=== PATIENT | female | born 1935 | race Caucasian/White ===

== ENCOUNTER 2017-10-29 14:51 | Inpatient (IN) | payer OTHER ==
[~2017-10-29] VITALS: Ht 167.6 cm; Wt 136.1 kg
[~2017-10-29 14:51] MED LIST: ACET-2869 PO; ALBU0.0912 INH; CHOL400T7 PO; CRAN425C4 PO; DIPH25TA53 PO; DOCU-7 PO; FAMO20TA47 PO; GABA300C PO; LACT1CAP83 PO; LEVO0.173 PO; LOSA25TA22 PO; METO25TA PO; RIVA15TA1 PO; SULF-58 PO; TRAZ-286 PO; ZYL300 PO
[2017-10-29 15:11] VITALS: BP 138/95
--- NOTE | 2017-10-29 15:19 | NUR ---
PATIENT STILL ON THR GURNEY . NO BED AVAIL. AT THIS TIME
[2017-10-29] MEDS ORDERED: DIGO0.122 PO (15:28)
--- NOTE | 2017-10-29 17:00 | NUR ---
PATIENT TO BED#11 BY PARAMEDICS
--- NOTE | 2017-10-29 17:26 | NUR ---
81 YO M BIBA W/ C/O ALTERED STATE, CONFUSION. PT FROM [facility] PER REPORT. PER REPORT FROM [facility], PT IS USUALLY A&O X4. CONFUSION BEGAN "LATE AFTERNOON". PT A&O X 2 AT THIS TIME. PT REORIENTED TO LOCATION ([facility]), BUT FORGOT WITHIN 3 MINS. PT UNAWARE OF SURROUNDINGS. PT SPEECH IS CLEAR. NO S/S OF INJURY. PT IS BILATERALLY STRONG. REFLEXES INTACT. NO S/S OF STROKE. UNABLE TO ATTAIN INFORMATION FROM PT AT THIS TIME. REPIRATIONS EVEN AND UNLABORED AT THIS TIME. LUNG SOUNDS CLEAR BILATERALLY AT THIS TIME. ER SECHRIST NOTIFIED OF PT STATUS. PT NEEDS MET AT THIS TIME. WILL CONTINUE TO MONITOR AND WILL CONTINUE TO REASSESS PT.
[2017-10-29] MEDS ORDERED: LORazepam 2 MG/ML VIAL IVP ONE (17:40)
[2017-10-29 18:12] LABS: BASOPHILS % (AUTO) 0.5 % (0.0-2.0); EOSINOPHILS # (AUTO) 0.1 K/uL (0-0.4); EOSINOPHILS % (AUTO) 1.4 % (0.0-4.0); HEMATOCRIT 46.5 % (36-48); HEMOGLOBIN 15.2 g/dL (12.0-16.0); LYMPHOCYTES # (AUTO) 1.3 K/uL (2.5-16.5); MEAN CORPUSCULAR HEMOGLOBIN 33 pg (27-31); MEAN CORPUSCULAR HGB CONC 33 g/dL (33-37); MEAN CORPUSCULAR VOLUME 100.9 fL (80-94); MONOCYTES # (AUTO) 0.7 K/uL (0.8-1.0); MONOCYTES % (AUTO) 7.9 % (1.7-9.3); NEUTROPHILS # (AUTO) 6.4 K/uL (1.8-7.7); NEUTROPHILS % (AUTO) 75.2 % (42.2-75.2); PLATELET COUNT (AUTO) 317 K/uL (140-450); RED BLOOD CELL COUNT(AUTO) 4.61 MIL/uL (4.20-5.40); RED CELL DISTRIBUTION WIDTH 15.6 % (11.6-13.7); WHITE BLOOD COUNT (AUTO) 8.6 K/uL (4.8-10.8)
[2017-10-29 18:44] LABS: ANION GAP 13.1 (8-16); CARBON DIOXIDE 34.5 mmol/L (21-32); CHLORIDE 102 mmol/L (98-107); CREATININE 0.9 mg/dL (0.6-1.3); GLUCOSE 157 mg/dL (74-106); POTASSIUM 3.6 mmol/L (3.5-5.1); SODIUM SERUM 146 mmol/L (136-145); UREA NITROGEN, BLOOD 6 mg/dL (7-18)
[2017-10-29 19:00] LABS: ASPARTATE AMINOTRANSFERASE 26 U/L (15-37); LIPASE 40 U/L (73-393); MAGNESIUM 2.1 mg/dL (1.8-2.4); PHOSPHORUS 2.8 mg/dL (2.5-4.9); THYROID STIMULATING HORMONE 7.02 uIU/mL (0.34-3.74); TOTAL BILIRUBIN 0.7 mg/dL (0.0-1.0)
--- NOTE | 2017-10-29 19:23 | NUR ---
Pt report given to GENI GONSALEZ. Transfer of care at this time.
--- NOTE | 2017-10-29 19:30 | NUR ---
RECEIVED REPORT FROM MORNING NURSE. PT IS RESTING IN BED. CONFUSED BUT ABLE TO FOLLOW SIMPLE COMMANDS. NO ACUTE DISTRES NOTED. WILL CONTINUE TO MONITOR.
[2017-10-29 20:26] LABS: APPEARANCE,URINE CLEAR (CLEAR); BILIRUBIN,URINE NEGATIVE (NEGATIVE); BLOOD, URINE NEGATIVE (NEGATIVE); LEUKOCYTE ESTERASE ,URINE NEGATIVE (NEGATIVE); NITRITE, URINE NEGATIVE (NEGATIVE); PH,URINE 8.5 (5.0-9.0); UGLUCOSE NEGATIVE (NEGATIVE)
[2017-10-29 20:40] LABS: COLOR,URINE STRAW (YELLOW)
[2017-10-29 20:45] LABS: BARBITURATE, URINE NEG. ng/ml (NEG <=200); BENZODIAZEPINE, URINE NEG. ng/mL (NEG <=200); CANNABINOID, URINE NEG. ng/mL (NEG <=50); COCAINE, URINE NEG. ng/mL (NEG <=300); OPIATE, URINE NEG. ng/mL (NEG <=2000); PHENCYCLIDINE SCREEN,URINE NEG. ng/mL (NEG <=25)
[2017-10-29 21:50] VITALS: BP 154/79
--- NOTE | 2017-10-29 21:50 | NUR ---
Patient will be admitted to care of DR. NEW HOROWITZ. Admited to TELEMETRY. Will go to room 124A. Belongings list completed. WHILE TRANPORATING TO TELEMETRY, PT PULLED IV LINE. NO BLEEDING NOTED. PT CONTINUES TO PULLING THE GOWN AND TELEMTRY LEADS. PT NOT ABLE TO BE REDIRECTED DUE TO CURRENT COGNITIVE STATUS. NO ACUTE DISTRESS NOTED. BED SIDE Report to GENI SIMS.
--- NOTE | 2017-10-29 21:50 | NUR ---
RECEIVED PT FROM ER VIA MIRZA PT CONFUSED ALERT IN PERSON COMBATIVE PULL OUT THE TELE BOX MONITOR AND TRYING TO HIT NURSES NOT IV ACCESS AT THIS TIME AFIB ON ON TELEMETRY MORBID OBESITY DISCOLORATION ON BILATERAL LOWER EXTREMITIES AND 2 SMALL DRY WOUNDS ON RT LOWER EXTREMITY PT IS ORIENTED TO THE FLOOR CALL LIGHT WITHN REACH MRSA NARES SCREEN TAKEN AND SENT TO LAB
[2017-10-29] MEDS ORDERED: LORazepam 2 MG/ML VIAL IM/IVP PRN (23:25)
--- NOTE | 2017-10-29 23:30 | NUR ---
DR BENAVIDEZ GIVE ORDERS TO FOLLOW
[2017-10-29] MEDS: NACL 0.45% 1,000 ML IV SCH (23:44)
[2017-10-30] VITALS: BP 150/70
--- NOTE | 2017-10-30 02:00 | NUR ---
PT PULL OUT AGAIN THE IV FROM LEFT FA A NEW IV WILL BE INSERTED, PTYELLING REFUSED TO BE TURNED ON TELMETRY CONTROLLED AFIB
[2017-10-30 04:00] VITALS: BP 137/72
--- NOTE | 2017-10-30 04:00 | NUR ---
SPONGE BATH GIVEN LINEN CHANGED CONTROLLED AFIB IV ON RT HAND INFUSING WELL NOT DISTRESS NOTED
--- NOTE | 2017-10-30 06:57 | NUR ---
PT SLEEPING QUIET ON TELEMETRY CONTROLLED AFIB IV ON RT HAND INFUSING WELL DR HOROWITZ WILL SEE THE PT THIS AM
[2017-10-30] MEDS ORDERED: HYDROcodone/APAP 5/325 MG 1 TAB TAB PO PRN (07:20)
[2017-10-30] MEDS ORDERED: ALBUTEROL SULFATE/IPRATROPIU 3 ML SOL IH PRN (07:20)
[2017-10-30] MEDS ORDERED: INSULIN LISPRO SLIDING SCALE 100 UNITS/ML VIAL SUBQ PRN (07:30)
[2017-10-30] MEDS: BLOOD GLUCOSE MONITORING 1 DEV DEV FS SCH ×4 (07:30→21:37)
[2017-10-30] MEDS ORDERED: DEXTROSE 50% 50 ML SYR IVP PRN (07:30)
[2017-10-30] MEDS ORDERED: LEVOTHYROXINE 0.1 MG, LEVOTHYROXINE 0.075 MG PO SCH ×2 (07:41)
--- NOTE | 2017-10-30 07:55 | NUR ---
PATIENT AWAKE. SITTING UP IN BED. DENIES SOB. HR 90. O2 SAT 95% ON ROOM AIR. BREATH SOUNDS CLEAR/DIMINISHED. NO TX INDICATED AT THIS TIME. NO RESPIRATORY DISTRESS NOTED. WILL CONTINUE TO MONITOR.
[2017-10-30 08:00] VITALS: BP 148/77
--- NOTE | 2017-10-30 08:29 | NUR ---
PT WAS AGITATED AND TRYING TO PULL IV OUT. YELLING "GET OUT OF HERE, IM GOING TO HURT YOU." ADMINISTERED ATIVAN 0.5MG IV. PT YELLED AGAIN AND PULL OUT IV FROM R HAND 24G. GRABBED MY HANDS TIGHT AND ATTEMPTED TO BITE. PT ALSO REFUSED EKG. LYING IN BED NOW. WILL CONTINUE TO MONITOR.
[2017-10-30] MEDS ORDERED: NON-FORMULARY ITEM (Levothyroxine Sodium* (Synthroid*) 0.175 MG) PO SCH (09:00)
[2017-10-30] MEDS: DOCUSATE SODIUM 100 MG GELCAP PO SCH ×3 (09:00→21:16)
--- NOTE | 2017-10-30 09:33 | NUR ---
PT HAD INCONTINENT URINE. WITH FINE DINING SERVER TRIED TO CLEAN PT AND CHANGED SHEETS. PT WAS COMBATIVE AND TRIED TO KICK RN AND FINE DINING SERVER. CURSING AT STAFF AND YELLING "GET OUT OF HERE!" REFUSED TO BE CLEAN. PT WENT BACK TO BED. SLEEPING NOW. WILL CONTINUE TO MONITOR.
--- NOTE | 2017-10-30 10:29 | NUR ---
PATIENT HAS BEEN SCREENED AND CATEGORIZED HIGH NUTRITION RISK. PATIENT WILL BE SEEN WITHIN 1-2 DAYS OF ADMISSION. 10/30/17 - 10/31/[address]
[2017-10-30] MEDS: METOPROLOL 25 MG TAB PO SCH (10:51)
[2017-10-30] MEDS: LOSARTAN 25 MG TAB PO SCH (10:51)
[2017-10-30] MEDS: ALLOPURINOL 300 MG TAB PO SCH (10:52)
[2017-10-30] MEDS: CITALOPRAM 20 MG TAB PO SCH (10:52)
[2017-10-30] MEDS: DIGOXIN 0.125 MG TAB PO SCH (10:52)
[2017-10-30] MEDS: FAMOTIDINE 20 MG TAB PO SCH ×2 (10:53→21:16)
[2017-10-30] MEDS: SULFAMETH/TRIMETH 400/80MG 1 TAB PO SCH ×3 (10:53→21:16)
--- NOTE | 2017-10-30 11:23 | NUR ---
PT CRYING AND YELLING. PULLED OFF TELE MONITOR. REFUSED TO HAVE TELE MONITOR ON. INFORMED PT NEEDS NEW IV START. PT STATED "DON'T YOU DARE PUT THAT IN ME!" AND CURSED AT SHIP PROPELLER FINISHER AND RN. LYING IN BED CRYING. NO INJURY. WILL CONTINUE TO MONITOR.
[2017-10-30] MEDS: NACL 0.45% 1,000 ML IV SCH (11:55)
[2017-10-30 12:00] VITALS: BP 144/67
[2017-10-30] MEDS: GABAPENTIN 300 MG CAP PO SCH ×2 (12:48→21:15)
--- NOTE | 2017-10-30 12:52 | NUR ---
PT'S BS WAS 182. PT REFUSED INSULIN. STATED SHE ONLY TAKES INSULIN IF HER BLD SUGAR IS OVER 200. ADMINISTERED GABAPENTIN PO. PT STATED SHE TAKES THAT. TOLERATED WELL. WILL CONTINUE TO MONITOR.
--- NOTE | 2017-10-30 14:01 | NUR ---
CM NOTE ADMISSION REVIEW FOR CRITERIA DONE
--- NOTE | 2017-10-30 14:37 | NUR ---
10/30/17 RD INITIAL ASSESSMENT COMPLETED PLEASE REFER TO NUTRITION ASSESSMENT UNDER CARE ACTIVITY FOR ESTIMATED NUTRITIONAL NEEDS. 1. CONTINUE MECHANICAL SOFT DIET TOLERATED 2. RECOMMEND CCHO 60G DIET TOLERATED 3. RD TO FOLLOW-UP 3-5 DAYS, MODERATE RISK ABA GARCIA, RD
--- NOTE | 2017-10-30 15:25 | NUR ---
PT HAD INCONTINENT URINE AND BM. CHANGED LINENS AND CLEANED PT. PT PULLED OFF TELE MONITOR. APPLIED TELE MONITOR BACK ON. WILL CONTINUE TO MONITOR.
[2017-10-30 16:00] VITALS: BP_SYST 108; BP_SYST 131; BP_DIAS 50; BP_DIAS 61
--- NOTE | 2017-10-30 17:20 | NUR ---
PT'S GRANDSON AT BEDSIDE. GAVE UPDATE ON PT. PT WAS CURSING AT STUDENT. TOLD PT SHE NEEDED IVF. PT REFUSED. EXPLAINED RISKS AND BENEFITS. PT STILL REFUSED.
--- NOTE | 2017-10-30 17:37 | NUR ---
CALLED DR. HOROWITZ AND REPORTED THAT PT REFUSED IV LINE AND THAT PT REFUSED INSULIN BECAUSE SHE STATED SHE ONLY GETS IF BS IS OVER 200. ORDERED FOR SL. REPORTED THAT DR. MELENDEZ CAME AND READ BACK RECOMMENDATION.
--- NOTE | 2017-10-30 19:32 | NUR ---
ENDORSED PT TO GLASSIE NURSE LEVI AT BEDSIDE FOR CONTINUITY OF CARE. PT IN STABLE CONDITION
--- NOTE | 2017-10-30 19:33 | NUR ---
RECEIVED PATIENT REPORT AT BEDSIDE FROM DAY SHIFT NURSE BJ. AT RECEIVING REPORT PATIENT AAO X1. PATIENT MORBID OBESITY. ON TELEMETRY A-FIB. NO IV ACCESS AT THIS TIME WE WILL INSERT A NEW ONE. BLE PITTING EDEMA +2 AND DISCOLORATION. RIGHT LEG HEEL SMALL SCAB WOUND. INITIAL ASSESSMENT DONE. BED LOWERED CALL LIGHT WITHIN REACH. WILL CONTINUE TO MONITOR.
[2017-10-30 20:00] VITALS: BP 132/59
[2017-10-30] MEDS: RIVAROXABAN 10 MG TAB PO SCH ×2 (21:00→21:45)
[2017-10-30] MEDS: DONEPEZIL 10 MG TAB PO SCH (21:15)
[2017-10-30] MEDS: traZODone 50 MG TAB PO SCH (21:16)
--- NOTE | 2017-10-30 21:31 | NUR ---
PATIENT BECAME VERY COMBATIVE REFUSED HEP LOCK - START OF NEW IV. PATIENT ONLY TOOK SOME MEDICATION. PT IS CONFUSED AND COMBATIVE. SHE HAS BECOME VIOLENT IN WANTING TO HIT STAFF. SHE WAS HITTING, SCRATCHING AND THROWING APPLE SAUCE.
--- NOTE | 2017-10-30 21:32 | NUR ---
WHILE TRYING TO START IV. PATIENT REFUSE. VERY CONFUSED AND COMBATIVE. DR NY WILL BE CALLED TO NOTIFIED PT CONDITION.
--- NOTE | 2017-10-30 21:45 | NUR ---
DR. HOROWITZ WAS NOTIFIED THAT PATIENT REFUSED HEP LOCK. IV SITE AND ALSO SPIT OUT SOME OF THE MEDICATION.
--- NOTE | 2017-10-30 23:00 | NUR ---
DID HOURLY ROUNDS PATIENT IS TALKING TO HERSELF AND AT TIMES SHOUTING. WILL CONTINUE TO MONITOR.
[2017-10-31] VITALS: BP_SYST 123; BP_SYST 135; BP_DIAS 63; BP_DIAS 66
--- NOTE | 2017-10-31 00:01 | NUR ---
ASSESSED PATIENT AND VITALS PT IS NOW CALM AND SLEEPING. VITALS WNL. WILL CONTINUE TO MONITOR.
[2017-10-31] MEDS: NACL 0.45% 1,000 ML IV SCH ×2 (00:25→12:55)
--- NOTE | 2017-10-31 03:00 | NUR ---
ASSESSED PATIENT. PT IS ASLEEP. WILL CONTINUE TO MONITOR.
[2017-10-31 04:00] VITALS: BP 143/57
[2017-10-31] MEDS: GABAPENTIN 300 MG CAP PO SCH ×3 (05:00→21:48)
--- NOTE | 2017-10-31 05:00 | NUR ---
PT REFUSED TO TAKE MEDICATION. DR HOROWITZ AWARE. PT IS COMBATIVE AND REFUSED WHEN WE INSISTED ON THE IMPORTANCE OF TAKING MEDICATION.
--- NOTE | 2017-10-31 06:28 | NUR ---
PT COMBATIVE REFUSED ACCU CHECK ,DANIEL ALFORD DIRECTOR MAKING ROUND IN THE UNIT IS AWARE ABOUT PT BEHAVIOR AT THIS TIME DR HOROWITZ WILL BE NOTIFY
[2017-10-31] MEDS ORDERED: LEVOTHYROXINE 0.1 MG, LEVOTHYROXINE 0.075 MG PO SCH ×2 (06:30)
--- NOTE | 2017-10-31 07:00 | NUR ---
DR HOROWITZ WAS NOTIFY THAT PT REFUSED TO TAKE MEDICATIION AD ORDERS TO FOLLOW
--- NOTE | 2017-10-31 07:07 | NUR ---
DR HOROWITZ AT BEDSIDE. TOOK BLOOD SUGAR 162. NO NEED TO COVER.
[2017-10-31] MEDS: BLOOD GLUCOSE MONITORING 1 DEV DEV FS SCH ×4 (07:08→21:53)
--- NOTE | 2017-10-31 07:16 | NUR ---
ASSUMED CONTINUITY OF CARE. NO SIGNS AND SYMPTOMS OF ACUTE DISTRESS NOTED. INITIAL ASSESSMENT DONE. NON-COMPLIANT. RE-ORIENTED TO EVENTS AND SURROUNDINGS. FALL PRECAUTION APPLIED. CALL LIGHT WITHIN REACH.
--- NOTE | 2017-10-31 07:32 | NUR ---
GAVE REPORT TO DAY SHIFT TIMOTHY ASSOCIATE PROFESSOR OF MUSIC NURSE AT BEDSIDE FOR CONTINUITY OF CARE.
--- NOTE | 2017-10-31 07:35 | NUR ---
Patient's Plan of Care was discussed and reviewed with FUENTES: HARSHA
[2017-10-31 08:00] VITALS: BP 141/95
[2017-10-31] MEDS: LOSARTAN 25 MG TAB PO SCH ×2 (09:00→09:10)
[2017-10-31] MEDS: METOPROLOL 25 MG TAB PO SCH ×2 (09:00→09:11)
[2017-10-31] MEDS: DIGOXIN 0.125 MG TAB PO SCH ×2 (09:00→09:09)
[2017-10-31] MEDS: CITALOPRAM 20 MG TAB PO SCH ×2 (09:00→09:10)
[2017-10-31] MEDS: FAMOTIDINE 20 MG TAB PO SCH ×3 (09:00→21:48)
[2017-10-31] MEDS: DOCUSATE SODIUM 100 MG GELCAP PO SCH ×3 (09:00→21:48)
[2017-10-31] MEDS: ALLOPURINOL 300 MG TAB PO SCH ×2 (09:00→09:09)
--- NOTE | 2017-10-31 09:05 | NUR ---
NON-COMPLIANT. REFUSED SCHEDULED MEDICINE. MADE AWARE. INFORMED CHARGE NURSE MITCHEL GUTIERREZ -GENI.
[2017-10-31] MEDS: SULFAMETH/TRIMETH 400/80MG 1 TAB PO SCH ×3 (09:06→21:48)
--- NOTE | 2017-10-31 10:00 | NUR ---
I attempted to contact Patient's Grandson Alessandro Hagan at to discuss patient's Status and discharge today back to [facility]). No response Form Mr. Hagan therefore; these policy writer sales left him a voicemail MSG with contact information and a request for a call back.
--- NOTE | 2017-10-31 10:38 | NUR ---
CM NOTE PER [facility] ROSANNE CARDENAS, FOR [facility] AUTH# [id number]. PER PEDRO OF [facility], PATIENT CAN GO BACK TO [address] Chris HOROWITZ, NUMBER TO CALL FOR REPORT PH# [phone]. CLINICALS FAXED TO [facility] [phone] ATTN: PEDRO. PER JENNIFER OF [facility] PH# [phone], PATIENT WILL BE PICKED UP AT 1500 TIME TODAY GOING TO [facility]. NURSE THIERRY HERRERA.
[2017-10-31 12:00] VITALS: BP 148/70
--- NOTE | 2017-10-31 12:00 | NUR ---
CALLED [facility] AND SPOKE TO PEDRO SKELTON AND GAVE REPORT REGARDING PT. TRANSFER. INFORMED CHARGE NURSE MITCHEL EPPS.
[2017-10-31 16:00] VITALS: BP 144/83
--- NOTE | 2017-10-31 17:20 | NUR ---
CALLED [facility] AND SPOKE TO JIM SKELTON AND INFORMED THAT PT. TRANSFER WAS RE-ARRANGED AT 2030 DUE TO BARIATRIC GURNEY AVAILABILITY. INFORMED CHARGE NURSE MITCHEL EPPS.
--- NOTE | 2017-10-31 18:35 | NUR ---
CALLED PT. DAUGHTER -RAMIRO AT AND INFORMED THAT PT. TRANSFER TO [facility] WAS RE-ARRANGED TO 2029 DUE TO BARIATRIC GURNEY AVAILABILITY. INFORMED CHARGE NURSE MITCHEL EPPS.
--- NOTE | 2017-10-31 19:11 | NUR ---
BEDSIDE REPORT GIVEN TO CHAD EPPS. IN STABLE CONDITION. ALSO ENDORSED ABOUT PT. TRANSFER TO [facility] TIME IS 2030 DUE TO BARIATRIC GURNEY. IN STABLE CONDITION.
--- NOTE | 2017-10-31 19:12 | NUR ---
RECEIVED REPORT FROM DAY SHIFT NURSE SEAN. PT RESTING IN BED. AOX1, NO IV ACCESS AND ON ROOM AIR. BLE PITTING EDEMA +2 WITH DISCOLORATION, ALSO ON RIGHT HEEL THERE IS A SMALL SCAB WOUND. PT IS NOT ABULATORY, MORBIDLY OBESE IN NEED OF 2 PERSON ASSIST. NO S/S OF RESPIRATORY DISTRESS OR DISCOMFORT AT THIS TIME. BED IN LOWEST POSITION, BREAKS ON. BED SIDE TABLE AND CALL LIGHT WITHIN REACH. DISCUSSED PLAN OF CARE AND PT VERBALIZED UNDERSTANDING. WHITE BOARD UPDATED. WILL CONTINUE TO MONITOR.
[2017-10-31 20:00] VITALS: BP 135/81
[2017-10-31] MEDS: traZODone 50 MG TAB PO SCH (21:48)
[2017-10-31] MEDS: DONEPEZIL 10 MG TAB PO SCH (21:48)
[2017-10-31] MEDS: RIVAROXABAN 10 MG TAB PO SCH (21:52)
--- NOTE | 2017-10-31 21:55 | NUR ---
SCHEDULED MEDICATIONS GIVEN. PT TOLERATED WELL. PT REFUSED INSULIN STATING, "I ONLY TAKE INSULIN WHEN MY BLOOD SUGAR IS OVER 200." EDUCATED PT ON INSULIN HOWEVER PT STILL REFUSED MEDICATION. PT WAITING TO BE TRANSFERRED. WILL CONTINUE TO MONITOR.
--- NOTE | 2017-10-31 23:05 | NUR ---
DISCHARGE PT TO [facility] AWAKE ALERT AND ORIENTED X3, NO RESPIRATORY DISTRES OR C/O PAIN . Addendum: 11/01/17 at 0439 by Ani Sher RN DISREGARD CHARTING AT 0696
--- NOTE | 2017-10-31 23:10 | NUR ---
PT LEFT VIA GURNEY BACK TO [facility]. PT IN STABLE CONDITION.
== END 2017-10-31 23:05 | disposition home or self-care (01) | DRG 71 ==
LOC: MED 14:51 → MTU 20:46
PROVIDERS: ADMIT Family Medicine; ATTEND Family Medicine
DX: G93.41 Metabolic encephalopathy (principal); E87.0 Hyperosmolality and hypernatremia; E11.40 Type 2 diabetes mellitus with diabetic neuropathy, unspecified; L03.115 Cellulitis of right lower limb; E44.1 Mild protein-calorie malnutrition; E66.01 Morbid (severe) obesity due to excess calories; I48.91 Unspecified atrial fibrillation; L03.116 Cellulitis of left lower limb; Z68.42 Body mass index [BMI] 45.0-49.9, adult; R41.82 Altered mental status, unspecified; I50.9 Heart failure, unspecified; I11.0 Hypertensive heart disease with heart failure; E03.9 Hypothyroidism, unspecified; G30.9 Alzheimer's disease, unspecified; F02.80 Dementia in other diseases classified elsewhere, unspecified severity, without behavioral disturbance, psychotic disturbance, mood disturbance, and anxiety; K21.9 Gastro-esophageal reflux disease without esophagitis; J44.9 Chronic obstructive pulmonary disease, unspecified; R53.81 Other malaise; F32.9 Major depressive disorder, single episode, unspecified; L29.9 Pruritus, unspecified; Z79.899 Other long term (current) drug therapy; Z90.710 Acquired absence of both cervix and uterus; Z88.0 Allergy status to penicillin; Z90.49 Acquired absence of other specified parts of digestive tract; Z98.51 Tubal ligation status; Z79.4 Long term (current) use of insulin
CPT/HCPCS: 36415; 70450; 71045; 80053; 80305; 81003; 82550; 82948; 83690; 83735; 84100; 84439; 84443; 84484; 85025; 87081; 93005; 96374; 99285; C1758; G0482; J1815; J2060; Q0092

== ENCOUNTER 2018-08-29 22:03 | Emergency (ER) | payer OTHER ==
[~2018-08-29] VITALS: Ht 165.1 cm; Wt 117.9 kg
[~2018-08-29 22:03] MED LIST changes: -ACET-2869 PO; +DIGO0.122 PO; +HYDR-5122 PO; -LOSA25TA22 PO; +LOSA25TA43 PO; -TRAZ-286 PO; +TRAZ-344 PO
[2018-08-29 22:05] VITALS: BP 133/82
--- NOTE | 2018-08-29 22:05 | NUR ---
ASSUMED CARE OF PT AT THIS TIME. C/O RLQ ABDOMINAL PAIN X 1 DAY. PATIENT STATES PAIN OF 9/10; VSS; PATIENT POSITIONED FOR COMFORT; HOB ELEVATED; BEDRAILS UP X2; BED DOWN. ER MD MADE AWARE OF PT STATUS. WILL CONTINUE TO MONITOR.
[2018-08-29] MEDS ORDERED: CEPH250C16 PO (22:21)
[2018-08-29] MEDS ORDERED: CALC500C17 PO (22:21)
[2018-08-29] MEDS ORDERED: LEVO0.2T5 PO (22:21)
[2018-08-29] MEDS ORDERED: FURO-570 PO (22:21)
[2018-08-29] MEDS ORDERED: GLIP5TAB4 PO (22:21)
[2018-08-29] MEDS ORDERED: POTA10TE30 PO (22:21)
[2018-08-29 22:36] LABS: BASOPHILS # (AUTO) 0.1 K/uL (0.00-0.22); BASOPHILS % (AUTO) 0.7 % (0.0-2.0); EOSINOPHILS # (AUTO) 0.3 K/uL (0-0.4); EOSINOPHILS % (AUTO) 3.3 % (0.0-4.0); HEMATOCRIT 41.5 % (36-48); HEMOGLOBIN 13.6 g/dL (12.0-16.0); LYMPHOCYTES # (AUTO) 1.3 K/uL (2.5-16.5); LYMPHOCYTES % (AUTO) 12.2 % (20.5-51.1); MEAN CORPUSCULAR HEMOGLOBIN 32 pg (27-31); MEAN CORPUSCULAR HGB CONC 33 g/dL (33-37); MEAN CORPUSCULAR VOLUME 98.7 fL (80-94); MONOCYTES # (AUTO) 0.6 K/uL (0.8-1.0); NEUTROPHILS # (AUTO) 8.1 K/uL (1.8-7.7); NEUTROPHILS % (AUTO) 77.8 % (42.2-75.2); PLATELET COUNT (AUTO) 319 K/uL (140-450); RED BLOOD CELL COUNT(AUTO) 4.21 MIL/uL (4.20-5.40); RED CELL DISTRIBUTION WIDTH 15.4 % (11.6-13.7); WHITE BLOOD COUNT (AUTO) 10.4 K/uL (4.8-10.8)
[2018-08-29] MEDS ORDERED: LORazepam 2 MG/ML VIAL IVP ONE (22:45)
[2018-08-29] MEDS ORDERED: LORazepam 2 MG/ML VIAL ONE (22:51)
[2018-08-29 22:53] LABS: ANION GAP 5.8 (8-16); ASPARTATE AMINOTRANSFERASE 37 U/L (15-37); CARBON DIOXIDE 34.2 mmol/L (21-32); CHLORIDE 100 mmol/L (98-107); GLUCOSE 180 mg/dL (74-106); LIPASE 89 U/L (73-393); SODIUM SERUM 136 mmol/L (136-145); TOTAL BILIRUBIN 0.4 mg/dL (0.0-1.0); UREA NITROGEN, BLOOD 12 mg/dL (7-18)
--- NOTE | 2018-08-29 23:00 | NUR ---
PT RETURNS FROM CT W/OUT INCIDENT.
[2018-08-29 23:16] LABS: APPEARANCE,URINE CLEAR (CLEAR); BILIRUBIN,URINE NEGATIVE (NEGATIVE); BLOOD, URINE NEGATIVE (NEGATIVE); COLOR,URINE YELLOW (YELLOW); LEUKOCYTE ESTERASE ,URINE TRACE (NEGATIVE); NITRITE, URINE NEGATIVE (NEGATIVE); PH,URINE 7.5 (5.0-9.0); UGLUCOSE NEGATIVE (NEGATIVE)
[2018-08-29 23:20] LABS: RBC,URINE 0-5 (RARE) /HPF (0-5); WBC,URINE 0-5 (RARE) /HPF (0-5)
[2018-08-30] MEDS ORDERED: MORPHINE SULFATE 4 MG/ML SYR IVP ONE (00:10)
--- NOTE | 2018-08-30 01:40 | NUR ---
PT RESTING COMFORTABLY AT THIS TIME. PT AWAITS TRANSPORT BACK TO SNF. NAD. VSS. WILL CONTINUE TO MONITOR.
[2018-08-30] MEDS ORDERED: LORazepam 2 MG/ML VIAL IVP ONE (03:10)
--- NOTE | 2018-08-30 03:20 | NUR ---
PT RESTING COMFORTABLY AT THIS TIME. PT CONTINUES TO AWAIT TRANSPORT BACK TO SNF. NAD. VSS. WILL CONTINUE TO MONITOR.
--- NOTE | 2018-08-30 05:55 | NUR ---
CALLED AND SPOKE W/ JULISA AT [facility] REGARDING PT'S RETURN/DISCHARGE. PT RESTING CONFORTABLY AT THIS TIME. NAD. VSS. PT CONTINUES TO AWAIT AMBULANCE TRANSPORT. WILL CONTINUE TO MONITOR.
[2018-08-30 06:50] VITALS: BP 141/80
--- NOTE | 2018-08-30 06:50 | NUR ---
Patient discharged with v/s stable. Written and verbal after care instructions given and explained. Patient verbalized understanding. Ambulance Transport with to care home. All questions addressed prior to discharge. Advised to follow up with PMD.
== END 2018-08-30 06:50 ==
LOC: MED 22:03
DX: R10.11 Right upper quadrant pain (principal); I11.0 Hypertensive heart disease with heart failure; I50.9 Heart failure, unspecified; E11.9 Type 2 diabetes mellitus without complications; K21.9 Gastro-esophageal reflux disease without esophagitis; J44.9 Chronic obstructive pulmonary disease, unspecified; Z90.710 Acquired absence of both cervix and uterus; Z90.49 Acquired absence of other specified parts of digestive tract; Z90.89 Acquired absence of other organs; Z98.890 Other specified postprocedural states; Z79.2 Long term (current) use of antibiotics; Z79.01 Long term (current) use of anticoagulants; Z79.84 Long term (current) use of oral hypoglycemic drugs; Z79.899 Other long term (current) drug therapy; Z88.0 Allergy status to penicillin; Z91.018 Allergy to other foods
CPT/HCPCS: 36415; 74176; 80053; 81001; 83690; 85025; 96374; 96375; 96376; 99284; J2060; J2270; 51702; 81002

== ENCOUNTER 2018-10-06 21:07 | Inpatient (IN) | payer OTHER ==
[~2018-10-06] VITALS: Ht 162.6 cm; Wt 141.5 kg
[~2018-10-06 21:07] MED LIST changes: -ALBU0.0912 INH; +CALC500C17 PO; +CEPH250C16 PO; -DIPH25TA53 PO; +FURO-570 PO; +GLIP5TAB4 PO; -LEVO0.173 PO; +LEVO0.2T5 PO; -LOSA25TA43 PO; +POTA10TE30 PO; -SULF-58 PO; -TRAZ-344 PO
--- NOTE | 2018-10-06 21:07 | NUR ---
BIBA TO ER BED 2
[2018-10-06 21:10] VITALS: BP 154/88
--- NOTE | 2018-10-06 21:44 | NUR ---
PATIENT PRESENTS TO ED WITH COUGH WITH EXCESSIVE SPUTUM PRODUCTION/POSS CHF EXACERBATION PER SNF. BILATERAL LOWER LEG EDEMA. PMH--COPD, CHF ALLERGIES--PCN. DENIES N/V/D; SKIN IS PINK/WARM/DRY; AAOX4 WITH EVEN AND STEADY GAIT; LUNGS CLEAR BL; HR EVEN AND REGULAR; PT DENIES ANY FEVER, CP, AT THIS TIME; PATIENT STATES PAIN OF 0/10 AT THIS TIME; VSS; PATIENT POSITIONED FOR COMFORT; HOB ELEVATED; BEDRAILS UP X2; BED DOWN. ER MD MADE AWARE OF PT STATUS.
[2018-10-06] MEDS ORDERED: NACL 0.9% 1,000 ML IV ONE (21:55)
[2018-10-06 22:27] LABS: BASOPHILS # (AUTO) 0.1 K/uL (0.00-0.22); BASOPHILS % (AUTO) 0.5 % (0.0-2.0); EOSINOPHILS # (AUTO) 0.1 K/uL (0-0.4); EOSINOPHILS % (AUTO) 0.9 % (0.0-4.0); HEMATOCRIT 40.2 % (36-48); HEMOGLOBIN 13.7 g/dL (12.0-16.0); LYMPHOCYTES # (AUTO) 1.2 K/uL (2.5-16.5); LYMPHOCYTES % (AUTO) 12.2 % (20.5-51.1); MEAN CORPUSCULAR HEMOGLOBIN 33 pg (27-31); MEAN CORPUSCULAR HGB CONC 34 g/dL (33-37); MEAN CORPUSCULAR VOLUME 95.8 fL (80-94); MONOCYTES # (AUTO) 0.8 K/uL (0.8-1.0); MONOCYTES % (AUTO) 8.1 % (1.7-9.3); NEUTROPHILS # (AUTO) 7.9 K/uL (1.8-7.7); NEUTROPHILS % (AUTO) 78.3 % (42.2-75.2); PLATELET COUNT (AUTO) 331 K/uL (140-450); RED BLOOD CELL COUNT(AUTO) 4.19 MIL/uL (4.20-5.40); RED CELL DISTRIBUTION WIDTH 16.1 % (11.6-13.7); WHITE BLOOD COUNT (AUTO) 10.1 K/uL (4.8-10.8)
[2018-10-06 22:38] LABS: ANION GAP 8.2 (8-16); CARBON DIOXIDE 31.5 mmol/L (21-32); CHLORIDE 98 mmol/L (98-107); CREATININE 0.8 mg/dL (0.6-1.3); GLUCOSE 144 mg/dL (74-106); POTASSIUM 3.7 mmol/L (3.5-5.1); SODIUM SERUM 134 mmol/L (136-145); UREA NITROGEN, BLOOD 8 mg/dL (7-18)
[2018-10-06 22:44] LABS: ALBUMIN 2.9 g/dL (3.4-5.0); ASPARTATE AMINOTRANSFERASE 32 U/L (15-37); TOTAL BILIRUBIN 0.5 mg/dL (0.0-1.0)
[2018-10-06 23:01] LABS: APPEARANCE,URINE CLEAR (CLEAR); BILIRUBIN,URINE NEGATIVE (NEGATIVE); BLOOD, URINE NEGATIVE (NEGATIVE); COLOR,URINE YELLOW (YELLOW); LEUKOCYTE ESTERASE ,URINE TRACE (NEGATIVE); NITRITE, URINE NEGATIVE (NEGATIVE); PH,URINE 6.5 (5.0-9.0); UGLUCOSE NEGATIVE (NEGATIVE)
[2018-10-06 23:11] LABS: PROTHROMBIN TIME 11.6 secs (10.8-13.4)
[2018-10-06 23:23] LABS: RBC,URINE 0-5 /HPF (0-5)
[2018-10-06] MEDS ORDERED: ALBUTEROL SULFATE/IPRATROPIU 3 ML SOL IH ONE (23:25)
[2018-10-06] MEDS ORDERED: MAG SULF 2000 MG/WATER PREMIX 50 ML IV ONE (23:25)
[2018-10-06] MEDS ORDERED: methylPREDNISolone SS 125 MG/2 ML VIAL IVP ONE (23:25)
[2018-10-06] MEDS ORDERED: LEVOFLOXACIN 500 MG/D5W PREMIX 100 ML IV ONE (23:25)
[2018-10-07] MEDS ORDERED: DEXTROSE 50% 50 ML SYR IVP PRN (00:05)
[2018-10-07] MEDS ORDERED: DOCUSATE SODIUM 100 MG GELCAP PO PRN (00:05)
[2018-10-07] MEDS ORDERED: LORazepam 2 MG/ML VIAL IM/IVP PRN (00:05)
[2018-10-07] MEDS ORDERED: MORPHINE SULFATE 2 MG/ML SYR IVP PRN (00:05)
[2018-10-07] MEDS ORDERED: PROMETH/CODEINE 6.25-10MG/5ML 5 ML UDC PO PRN (00:05)
[2018-10-07] MEDS ORDERED: ACETAMINOPHEN 325 MG TAB PO PRN (00:05)
[2018-10-07] MEDS ORDERED: MAGNESIUM HYDROXIDE 2400 MG/30 ML UDC PO PRN (00:05)
[2018-10-07] MEDS ORDERED: ZOLPIDEM 5 MG TAB PO PRN (00:05)
[2018-10-07] MEDS ORDERED: ONDANSETRON 4 MG/2 ML VIAL IM/IVP PRN (00:05)
[2018-10-07] MEDS ORDERED: ALBUTEROL SULFATE/IPRATROPIU 3 ML SOL IH PRN (00:05)
[2018-10-07 00:15] VITALS: BP 113/60
--- NOTE | 2018-10-07 00:17 | NUR ---
Patient will be admitted to care of dr. Arguelles. Admited to tele Will go to room 108 Belongings list completed. Report to cher Stinson.
--- NOTE | 2018-10-07 00:30 | NUR ---
PT ARRIVED VIA GURNEY. REPORT GIVEN BY FANNY ARECHIGA HARD ROCK MINER NURSE AT BEDSIDE FOR CONTINUITY OF CARE. PT SKIN INTACT, EXCEPT FOR BILATERAL LOWER LEGS ARE NON PITTING EDEMA WITH SOME MILD REDNESS.PT AOX2 SHE HAS 02 RUNNING AT 2LITERS VIA N/C. V/S FOLLOWS T 97.9 P 65 R 20 B/P 120/60 02 96 % WITH 2LITERS 02. PT DENIES PAIN. PT DOES HAVE NON PRODUCTIVE COUGH. HOB UP 45%. PT HAS LAC 20G RUNNING N/S AT 20 TO KVO.
[2018-10-07 00:37] LABS: MAGNESIUM 2.2 mg/dL (1.8-2.4); PHOSPHORUS 3.7 mg/dL (2.5-4.9); THYROID STIMULATING HORMONE 12.02 uIU/mL (0.34-3.74)
[2018-10-07] MEDS ORDERED: DOCU-300 PO (00:44)
[2018-10-07] MEDS: NACL 0.9% 1,000 ML IV SCH (01:30)
--- NOTE | 2018-10-07 01:30 | NUR ---
RESPIRATORY AT BEDSIDE PROVIDING TEACHING FOR INCENTIVE SPIROMETER.
[2018-10-07 04:00] VITALS: BP 121/57
--- NOTE | 2018-10-07 04:00 | NUR ---
PT HAS A-FIB ON MONITOR AND HX OF A-FIB. PT IS ASYMPTOMATIC V/S FOLLOWS T 98.2 P 64 R 18 B/P 121/57 02 95% WITH 2 LITERS VIA N/C. LAC 20 GUAGE INTACT AND RUNNING ORDERED. PT TURNED CHANGED AND REPOSITIONED. PT INCONTINENT OF B&B PT ON FLUID RESTRICTION AT 2LITERS. ALL FALLS PRECAUTIONS IN PLACE AND CALL MCCABE IN REACH. SPUTUM, MRSA AND FLU RESULTS PENDING.
[2018-10-07] MEDS ORDERED: methylPREDNISolone SS 125 MG/2 ML VIAL IVP SCH (05:00)
--- NOTE | 2018-10-07 05:35 | NUR ---
PT GIVEN AM MEDS OF SOLUMEDROL, NEURONTIN, AND SYNTHROID.
[2018-10-07] MEDS: CALCIUM CARBONATE 500 MG TAB.CHEW PO SCH ×3 (05:38→21:16)
[2018-10-07] MEDS: GABAPENTIN 300 MG CAP PO SCH ×3 (05:38→21:18)
[2018-10-07] MEDS: LEVOTHYROXINE 0.1 MG TAB PO SCH (05:39)
[2018-10-07] MEDS: BLOOD GLUCOSE MONITORING 1 DEV DEV FS SCH ×4 (05:45→21:04)
[2018-10-07] MEDS: INSULIN LISPRO SLIDING SCALE 100 UNITS/ML VIAL SUBQ PRN ×3 (05:50→21:15)
--- NOTE | 2018-10-07 06:35 | NUR ---
BENDING ROLL HAND CALLED TO REPORT AM LABS OF [facility] AT 8. RESIDENT MD CALLED AND NOTIFIED WILL ALSO ENDORSE TO NEXT SHIFT TO FOLLOW UP WITH ANY NEW ORDERS.
[2018-10-07] MEDS: ALBUTEROL SULFATE/IPRATROPIU 3 ML SOL IH SCH ×3 (07:13→19:05)
--- NOTE | 2018-10-07 07:25 | NUR ---
ENDORSED CARE, TO FRANKLIN RN DAYSHIFT NURSES FOR CONTINUITY OF CARE, PT AT BEDSIDE RECEIVING NEB TXTMENT.
--- NOTE | 2018-10-07 07:28 | NUR ---
RECEIVED HAND OFF REPORT FROM SWITCHBOARD OPERATOR RECEPTIONIST NURSE. RT AT BEDSIDE GIVING PT A BREATHING TREATMENT. PT ASKING FOR PAIN MEDICINE. WILL ASSESS AND SEE WHAT I ARE IN THE ORDERS
[2018-10-07] MEDS: BUDESONIDE 0.5 MG/2 ML NEBU INH SCH ×2 (07:30→19:07)
[2018-10-07 08:00] VITALS: BP 129/73
[2018-10-07] MEDS: FUROSEMIDE 40 MG/4 ML VIAL IVP SCH ×2 (08:03→21:16)
[2018-10-07] MEDS: ALLOPURINOL 300 MG TAB PO SCH (08:04)
[2018-10-07] MEDS: DIGOXIN 0.125 MG TAB PO SCH (08:04)
[2018-10-07] MEDS: PANTOPRAZOLE 40 MG TABEC PO SCH (08:04)
[2018-10-07] MEDS: METOPROLOL 25 MG TAB PO SCH (08:05)
--- NOTE | 2018-10-07 08:26 | NUR ---
PATIENT HAS BEEN SCREENED AND CATEGORIZED HIGH NUTRITION RISK. PATIENT WILL BE SEEN WITHIN 1-2 DAYS OF ADMISSION. 10/07/18-10/08/[address]
[2018-10-07] MEDS ORDERED: FUROSEMIDE 40 MG/4 ML VIAL IVP SCH (09:00)
--- NOTE | 2018-10-07 09:00 | NUR ---
PT INCONTINENT OF URINE, PERICARE DONE AND CHANGED PADS, PT YELLS AND SCREAMS WITH ANY TOUCH, KICKED A NURSE DURING PAD CHANGE, PT INFORMED NOT TO KICK OR HIT ANYONE.
[2018-10-07] MEDS: LACTOBACILLUS RHAMNOSUS GG 1 EACH CAP PO SCH (09:17)
--- NOTE | 2018-10-07 10:40 | NUR ---
PT REQUIRED LINEN CHANGE AFTER BOWEL MOVEMENT. PT WAS CLEANED AND LINEN CHANGE. PT TOLERATED LINEN CHANGE WELL. STATED THE PAIN MEDICATION WAS HELPING IMPROVE HER PAIN
--- NOTE | 2018-10-07 11:25 | NUR ---
ROUNDED ON PT. PTS DAUGHTER AT BEDSIDE. PT RESTING IN BED COMFORTABLY. ALL SAFETY MEASURES IN PLACE
--- NOTE | 2018-10-07 11:55 | NUR ---
PT REFUSES TO GET BLOOD SUGAR CHECKED, PT INSISTED ON GETTING POKED ON THE PALM OF THE HAND INSTEAD OF ANY OF HER FINGERS, PT VERBALLY ABUSIVE TO NURSE WITH RAISED VOICE, AND GAVE A GESTURE WITH HER MIDDLE FINGER.
[2018-10-07 12:00] VITALS: BP 110/53
[2018-10-07] MEDS: methylPREDNISolone SS 40 MG/ML VIAL IVP SCH ×2 (13:01→21:16)
--- NOTE | 2018-10-07 13:16 | NUR ---
10/07/18 RD INITIAL ASSESSMENT COMPLETED PLEASE REFER TO NUTRITION ASSESSMENT UNDER CARE ACTIVITY FOR ESTIMATED NUTRITIONAL NEEDS. 1. CONTINUE CARDIAC CCHO DIET TOLERATED 2. NUTRITION EDUCATION ON TLC HEART HEALTHY DIET WAS PROVIDED. 3. RD TO FOLLOW-UP 5-7 DAYS, LOW RISK ANITA LUIS, ANSLEY
[2018-10-07 16:00] VITALS: BP 109/76
--- NOTE | 2018-10-07 16:01 | NUR ---
ROUNDED ON PT. PT IN BED. PT REQUESTED A WET WASH CLOTH AND A TOWEL. ALL SAFETY MEASURES IN PLACE. NO SIGNS OF DISTRESS.
--- NOTE | 2018-10-07 16:15 | NUR ---
SPOKE WITH DAUGHTER RAMIRO ON THE PHONE. HER DAUGHTER REQUEST TO SPEAK WITH HER ON THE PHONE. PT WAS HAPPY WHEN DONE SPEAKING TO HER THE PT WAS IN A GOOD MOOD
--- NOTE | 2018-10-07 17:00 | NUR ---
PTS GRANDSON AT BEDSIDE PT ALLOWED ME TO TAKE HER VITALS AND BLOOD GLUCOSE. BLOOD GLUCOSE WAS 367 IN FINGER PT ASKED ME TO RETAKE IT IN THE PALM. BLOOD GLUCOSE WAS 370. INSULIN COVERAGE GIVEN.
[2018-10-07] MEDS: glipiZIDE 5 MG TAB PO SCH (17:15)
[2018-10-07] MEDS: MONTELUKAST SODIUM 10 MG TAB PO SCH (17:16)
--- NOTE | 2018-10-07 18:15 | NUR ---
ROUNDED ON PT. PT RESTING IN BED PT IS PERFORMING PERSONAL SKIN CARE INDEPENDENTLY. PT STATED THAT SHE IS FEELING BETTER COUGHING LESS AND EXPERIENCING LESS PAIN.
--- NOTE | 2018-10-07 19:26 | NUR ---
HAND OFF REPORT GIVEN TO LANDSCAPE DRAFTER NURSE. PT IN BED WITH BREATHING TREATMENT. ALL SAFETY MEASURES IN PLACE.
--- NOTE | 2018-10-07 19:30 | NUR ---
ASSUMED CARE OF PATIENT, AWAKE, NO COMPLAINS. NO DISTRESS. CALL LIGHT WITHIN REACH.
[2018-10-07 20:00] VITALS: BP 126/64
--- NOTE | 2018-10-07 21:00 | NUR ---
HS SNACK GIVEN. DUE MEDS GIVEN. REPOSITIONED TO RIGHT SIDE LYING. NO COMPLAINS. CALL LIGHT WITHIN REACH.
[2018-10-07] MEDS: RIVAROXABAN 15 MG TAB PO SCH (21:18)
[2018-10-07] MEDS ORDERED: LEVOFLOXACIN 500 MG/D5W PREMIX 100 ML IV SCH (22:00)
[2018-10-07] MEDS: LEVOFLOXACIN 250 MG/D5 PREMIX 50 ML IV SCH (23:05)
--- NOTE | 2018-10-08 | NUR ---
VITAL SIGNS STABLE. NO COMPLAINS. REPOSITIONED TO RIGHT SIDE LYING. AFEBRILE. ASLEEP NO COMPLAINS.
[2018-10-08] MEDS: NACL 0.9% 1,000 ML IV SCH (00:39)
[2018-10-08 00:42] VITALS: BP 118/63
--- NOTE | 2018-10-08 02:00 | NUR ---
ASLEEP EASILY AROUSABLE. NO COMPLAINS. CALL LIGHT WITHIN REACH.
[2018-10-08 04:28] VITALS: BP 109/65
--- NOTE | 2018-10-08 04:30 | NUR ---
REPOSITIONED BY MACHINE HOOP MAKER, SUPINE LYING. ASLEEP, EASILY AROUSABLE. NO COMPLAINS. VITAL SIGNS STABLE. AFEBRILE. CALL LIGHT WITHIN REACH.
[2018-10-08] MEDS ORDERED: methylPREDNISolone SS 40 MG/ML VIAL IVP SCH (05:00)
[2018-10-08] MEDS: CALCIUM CARBONATE 500 MG TAB.CHEW PO SCH ×3 (05:31→21:01)
[2018-10-08] MEDS: methylPREDNISolone SS 40 MG/ML VIAL IVP SCH (05:31)
[2018-10-08] MEDS: GABAPENTIN 300 MG CAP PO SCH ×3 (05:31→21:01)
[2018-10-08] MEDS: LEVOTHYROXINE 0.1 MG TAB PO SCH (05:32)
[2018-10-08] MEDS: HYDROcodone/APAP 10/325 MG 1 TAB TAB PO PRN (05:32)
[2018-10-08] MEDS: BLOOD GLUCOSE MONITORING 1 DEV DEV FS SCH ×4 (05:52→21:24)
--- NOTE | 2018-10-08 06:00 | NUR ---
PERICARE DONE BACK END WEB DEVELOPER, SUPINE REPOSITIONED. CALL LIGHT WITHIN REACH.
[2018-10-08] MEDS: INSULIN LISPRO SLIDING SCALE 100 UNITS/ML VIAL SUBQ PRN ×4 (06:23→21:00)
[2018-10-08 06:39] LABS: BASOPHILS % (AUTO) 0.1 % (0.0-2.0); HEMATOCRIT 40.1 % (36-48); HEMOGLOBIN 13.5 g/dL (12.0-16.0); LYMPHOCYTES # (AUTO) 0.8 K/uL (2.5-16.5); LYMPHOCYTES % (AUTO) 7.3 % (20.5-51.1); MEAN CORPUSCULAR HEMOGLOBIN 33 pg (27-31); MEAN CORPUSCULAR HGB CONC 34 g/dL (33-37); MEAN CORPUSCULAR VOLUME 97.5 fL (80-94); MONOCYTES # (AUTO) 0.5 K/uL (0.8-1.0); MONOCYTES % (AUTO) 4.5 % (1.7-9.3); NEUTROPHILS # (AUTO) 9.2 K/uL (1.8-7.7); NEUTROPHILS % (AUTO) 88.1 % (42.2-75.2); PLATELET COUNT (AUTO) 330 K/uL (140-450); RED BLOOD CELL COUNT(AUTO) 4.11 MIL/uL (4.20-5.40); WHITE BLOOD COUNT (AUTO) 10.4 K/uL (4.8-10.8)
[2018-10-08 06:51] LABS: MAGNESIUM 2.3 mg/dL (1.8-2.4); PHOSPHORUS 2.8 mg/dL (2.5-4.9)
[2018-10-08] MEDS: ALBUTEROL SULFATE/IPRATROPIU 3 ML SOL IH SCH ×4 (07:00→19:02)
--- NOTE | 2018-10-08 07:21 | NUR ---
ENDORSED CARE AT BEDSIDE WITH FISH RN, PATIENT IN STABLE CONDITION.
[2018-10-08] MEDS: BUDESONIDE 0.5 MG/2 ML NEBU INH SCH ×2 (07:22→19:03)
--- NOTE | 2018-10-08 07:23 | NUR ---
PT REFUSED PULMICORT 0.5MG TX
--- NOTE | 2018-10-08 07:24 | NUR ---
RECEIVED REPORT FROM PM NURSE AT BEDSIDE. PT LYING ON HER BED. PT AOX3. PT IS ON FALL RISK PRECAUTION. BED ALARM ON. IV ACCESS ON LFT FA, IVF INFUSING WELL. PT IS ON STRICT I&O. UPDATED BOARD AND INTRODUCED SELF. ALL SAFETY MEASURE IN PLACE. WILL CONTINUE TO MONITOR PT.
[2018-10-08 07:52] LABS: ANION GAP 13.8 (8-16); CARBON DIOXIDE 31.1 mmol/L (21-32); CHLORIDE 100 mmol/L (98-107); GLUCOSE 282 mg/dL (74-106); POTASSIUM 3.9 mmol/L (3.5-5.1); SODIUM SERUM 141 mmol/L (136-145); UREA NITROGEN, BLOOD 14 mg/dL (7-18)
[2018-10-08 08:00] VITALS: BP 129/71
[2018-10-08] MEDS: METOPROLOL 25 MG TAB PO SCH (09:37)
[2018-10-08] MEDS: LACTOBACILLUS RHAMNOSUS GG 1 EACH CAP PO SCH (09:37)
[2018-10-08] MEDS: FUROSEMIDE 40 MG/4 ML VIAL IVP SCH ×2 (09:37→21:01)
[2018-10-08] MEDS: ALLOPURINOL 300 MG TAB PO SCH (09:38)
[2018-10-08] MEDS: DIGOXIN 0.125 MG TAB PO SCH (09:38)
[2018-10-08] MEDS: PANTOPRAZOLE 40 MG TABEC PO SCH (09:38)
--- NOTE | 2018-10-08 09:46 | NUR ---
ADMINISTERED MEDS TO PT ORDERED. PT TOLERATED WELL. NO SIGN OF DISTRESS NOTED. PT HAS BEEN PUT ON THE CHAIR. CALL LIGHT WITHIN PT REACH. ASKED HER TO USE CALL LIGHT FOR ANY HELP. PT VERBALIZED UNDERSTANDING. WILL CONTINUE TO MONITOR PT.
[2018-10-08 12:00] VITALS: BP 103/52
--- NOTE | 2018-10-08 12:28 | NUR ---
PT BS 280. ADMINISTERED 6 UNITS OF INSULIN. PT SITTING ON HER HAIR. HAVING HER LUNCH. NO DISTRESSED NOTED. CALL LIGHT WITHIN PT REACH. INFORMED PT TO USE CALL LIGHT FOR ANY HELP. VERBALIZED UNDERSTANDING. WILL CONTINUE TO MONITOR PT.
--- NOTE | 2018-10-08 14:16 | NUR ---
ADMINISTERED MEDS TO PT. SIT UP IN HER BED. NO SIGN OF DISTRESS NOTED. ALL SAFETY MEASURE IN PLACE. WILL CONTINUE TO MONITOR PT.
[2018-10-08 16:00] VITALS: BP 122/57
[2018-10-08] MEDS: glipiZIDE 5 MG TAB PO SCH (16:49)
[2018-10-08] MEDS: MONTELUKAST SODIUM 10 MG TAB PO SCH (16:50)
--- NOTE | 2018-10-08 19:20 | NUR ---
ENDORSED PT TO PM NURSE AT BEDSIDE. PT IN STABLE CONDITION.
--- NOTE | 2018-10-08 19:21 | NUR ---
RECEIVED REPORT FROM DAY SHIFT NURSE. PT LYING IN BED. AAOX3. PT GETTING HER BREATHING TREATMENT. RT AT BEDSIDE. IV TO LEFT AC #20G, NS AT 20 ML/HR INFUSING WELL. SKIN INTACT. PT HAS BLE EDEMA. SAFETY PRECAUTION IN PLACE. CALL LIGHT WITHIN REACH.
[2018-10-08 20:00] VITALS: BP 110/63
--- NOTE | 2018-10-08 21:02 | NUR ---
DUE MEDS GIVEN. PT TOLERATED WELL. BLOOD SUGAR CHECKED 239. 2 UNITS OF HUMALOG GIVEN SUBQ.
[2018-10-08] MEDS: RIVAROXABAN 15 MG TAB PO SCH (21:03)
[2018-10-08] MEDS: LEVOFLOXACIN 250 MG/D5 PREMIX 50 ML IV SCH (23:11)
--- NOTE | 2018-10-08 23:30 | NUR ---
PT C/O COUGH. RT IN THE ROOM FOR BREATHING TREATMENT.
[2018-10-09] VITALS: BP 115/57
--- NOTE | 2018-10-09 00:27 | NUR ---
PT SLEEPING BUT EASILY AROUSABLE. NO COUGH AT THIS TIME. NO S/S OF PAIN OR SOB.
[2018-10-09] MEDS: NACL 0.9% 1,000 ML IV SCH (01:00)
--- NOTE | 2018-10-09 02:30 | NUR ---
PT SLEEPING. RESP EVEN AND UNLABORED. NO S/S OF PAIN OR DISCOMFORT. PT KEPT DRY AND COMFORTABLE.
[2018-10-09 04:00] VITALS: BP 111/57
--- NOTE | 2018-10-09 04:30 | NUR ---
PT WAS CLEANED AND CHANGED BY BLOCKER METAL BASE. NO C/O PAIN . NO RESP DISTRESS NOTED. NEEDS MET AT THIS TIME.
[2018-10-09] MEDS: CALCIUM CARBONATE 500 MG TAB.CHEW PO SCH ×2 (04:46→12:26)
[2018-10-09] MEDS: GABAPENTIN 300 MG CAP PO SCH ×2 (04:46→12:26)
--- NOTE | 2018-10-09 04:55 | NUR ---
PT C/O MILD SOB AND COUGH. PT REFUSED O2. HOB ELEVATED. O2 SAT 93% ON ROOM AIR. CALLED RT FOR BREATHING TREATMENT.
--- NOTE | 2018-10-09 05:05 | NUR ---
PT GETTING BREATHING TREATMENT AT THIS TIME. RT AT BEDSIDE.
--- NOTE | 2018-10-09 05:45 | NUR ---
PT SITTING IN BED. PER PT, SHE FEELS BETTER. NO SOB NOTED. NO COUGH AT THIS TIME.
[2018-10-09] MEDS: BLOOD GLUCOSE MONITORING 1 DEV DEV FS SCH ×2 (05:49→12:15)
[2018-10-09] MEDS: LEVOTHYROXINE 0.1 MG TAB PO SCH (05:49)
--- NOTE | 2018-10-09 06:48 | NUR ---
SATURATION 88% ON ROOM AIR POST HHN THERAPY PLACED PATIENT ON SUPPLEMENTAL OXYGEN AT 2 LPM VIA SITA SHAW/STACEY RN NOTIFIED RN TO NOTIFY ESPERANZA/GENI
[2018-10-09] MEDS: ALBUTEROL SULFATE/IPRATROPIU 3 ML SOL IH SCH ×2 (07:00→13:44)
--- NOTE | 2018-10-09 07:09 | NUR ---
RECEIVED PT FROM PAPER CUTTING MACHINE OPERATOR. PT IS AA0X3. PT HAD BREATHING TX FOR COPD EXACERBATION. PT TOLERATED WELL. PT IS RESTING IN BED NOW. NO SIGNS OF DISTRESS OR PAIN NOTED. PT ORIENTED TO BROWN LAURA CALL LIGHT. BOARD UPDATED. PT VERBALIZED UNDERSTANDING OF TEACHING ON HOW TO USE CALL LIGHT IN CASE OF ANY NEEDS ARISE. BED IN LOW POSITION, CALL LIGHT WITHIN REACH.
[2018-10-09] MEDS: BUDESONIDE 0.5 MG/2 ML NEBU INH SCH (07:30)
[2018-10-09 08:00] VITALS: BP 106/62
[2018-10-09] MEDS: METOPROLOL 25 MG TAB PO SCH (09:00)
[2018-10-09] MEDS ORDERED: LACT10CA PO (09:19)
[2018-10-09] MEDS ORDERED: PRED20TA5 PO (09:53)
[2018-10-09] MEDS ORDERED: LEVO750T2 PO (09:53)
--- NOTE | 2018-10-09 09:54 | NUR ---
ADMINISTERED MORNING MEDS TO PT. PT TOLERATED MEDS WELL. ALL NEEDS MET AT THIS TIME. WILL CONTINUE TO ROUND FREQUENTLY ON PT. BED IN LOW POSITION, CALL LIGHT WITHIN REACH.
[2018-10-09] MEDS: LACTOBACILLUS RHAMNOSUS GG 1 EACH CAP PO SCH (09:59)
[2018-10-09] MEDS: PANTOPRAZOLE 40 MG TABEC PO SCH (10:00)
[2018-10-09] MEDS: DIGOXIN 0.125 MG TAB PO SCH (10:00)
[2018-10-09] MEDS: ALLOPURINOL 300 MG TAB PO SCH (10:00)
[2018-10-09] MEDS: FUROSEMIDE 40 MG/4 ML VIAL IVP SCH (10:01)
[2018-10-09] MEDS: HYDROcodone/APAP 10/325 MG 1 TAB TAB PO PRN (10:01)
--- NOTE | 2018-10-09 10:39 | NUR ---
ROSANNE NOTE RECEIVED ORDER TO DC BACK TO [facility] TODAY. FAXED CLINICAL PACKET TO [facility]. PER HEIKE OF [facility], THE PATIENT CAN GO TO [facility] UND[address], NUMBER TO CALL FOR REPORT PH# [phone]. THE PATIENT HAS SECONDARY IEHP. PER IEHP ROSANNE CARDENAS, FOR [facility] AUTH# [id number]. PER FELICITAS OF [facility], THE PATIENT WILL BE PICKED UP AT 1330 TIME TODAY TO GO TO [facility], [facility]. ESPERANZA ARECHIGA AWARE.
--- NOTE | 2018-10-09 11:38 | NUR ---
Building Estimator Note: Brett Russell from [facility] , patient is on a 7 day bed hold and is one of their [employer] or [employer] principal patients. She stated patient is self responsible and her daughter Kyleigh Flores is involved with her care.
--- NOTE | 2018-10-09 11:45 | NUR ---
PT ASLEEP IN BED. NO SIGNS OF PAIN OR DISTRESS NOTED. BED IN LOW POSITION, CALL LIGHT WITHIN REACH.
[2018-10-09 12:00] VITALS: BP 121/76
[2018-10-09] MEDS: INSULIN LISPRO SLIDING SCALE 100 UNITS/ML VIAL SUBQ PRN (12:27)
--- NOTE | 2018-10-09 14:05 | NUR ---
PT DISCHARGED TO [facility] FOR CONTINUITY OF CARE. PT TRANSFERRED VIA TRANSPORT VEHICLE. PT DISCHARGE PAPERWORK NOT SIGNED BY PT DUE TO ALTERED MENTAL STATUS. ALL PATENT PERSONAL BELONGINGS TAKEN WITH HER. IV REMOVED WITH TIP INTACT. WRIST BANDS REMOVED AND PLACED IN SHRED BIN. PT LEFT IN STABLE CONDITION, VERBALIZED UNDERSTANDING OF TEACHING BUT REINFORCEMENT WAS NEEDED FREQUENTLY. CALLED [facility] AND GAVE REPORT TO GENI AUSTIN WHO WILL BE CARING FOR PT.
== END 2018-10-09 14:05 | DRG 190 ==
LOC: MED 21:07 → MTU 23:36
PROVIDERS: ADMIT Family Medicine; ATTEND Family Medicine
DX: J44.1 Chronic obstructive pulmonary disease with (acute) exacerbation (principal); E43 Unspecified severe protein-calorie malnutrition; N39.0 Urinary tract infection, site not specified; D68.9 Coagulation defect, unspecified; Z68.43 Body mass index [BMI] 50.0-59.9, adult; E87.1 Hypo-osmolality and hyponatremia; J45.901 Unspecified asthma with (acute) exacerbation; J44.0 Chronic obstructive pulmonary disease with (acute) lower respiratory infection; E11.65 Type 2 diabetes mellitus with hyperglycemia; K21.9 Gastro-esophageal reflux disease without esophagitis; E11.40 Type 2 diabetes mellitus with diabetic neuropathy, unspecified; E03.9 Hypothyroidism, unspecified; E66.01 Morbid (severe) obesity due to excess calories; I11.0 Hypertensive heart disease with heart failure; I48.2 Chronic atrial fibrillation; I50.9 Heart failure, unspecified; G89.29 Other chronic pain; I89.0 Lymphedema, not elsewhere classified; J20.9 Acute bronchitis, unspecified; Z79.01 Long term (current) use of anticoagulants; Z88.0 Allergy status to penicillin; Z91.018 Allergy to other foods; Z79.899 Other long term (current) drug therapy; Z79.84 Long term (current) use of oral hypoglycemic drugs; Z90.49 Acquired absence of other specified parts of digestive tract; Z90.710 Acquired absence of both cervix and uterus; Z98.51 Tubal ligation status
CPT/HCPCS: 36415; 36600; 71045; 80048; 80053; 80162; 81001; 82803; 82948; 83036; 83605; 83690; 83735; 83880; 84100; 84134; 84443; 84484; 85025; 85610; 85730; 87040; 87070; 87081; 87086; 87186; 87205; 87804; 89220; 93005; 93970; 94640; 96374; 99285; J1815; J1940; J1956; J2270; J2920; J2930; J3475; J7030; J7620; J7626; Q0092

== ENCOUNTER 2018-10-29 08:51 | Emergency (ER) | payer OTHER ==
[~2018-10-29] VITALS: Ht 165.1 cm; Wt 149.7 kg
[~2018-10-29 08:51] MED LIST changes: -CEPH250C16 PO; +DOCU-300 PO; -DOCU-7 PO; +LACT10CA PO; +LEVO750T2 PO; +PRED20TA5 PO
--- NOTE | 2018-10-29 08:51 | NUR ---
PATIENT BIBA TO BED 11 AT THIS TIME.
[2018-10-29 08:56] VITALS: BP 130/85
[2018-10-29] MEDS ORDERED: ONDANSETRON 4 MG/2 ML VIAL IVP ONE (09:10)
[2018-10-29] MEDS ORDERED: MORPHINE SULFATE 4 MG/ML SYR IVP ONE ×2 (09:10→10:20)
--- NOTE | 2018-10-29 09:12 | NUR ---
BIB EMS FROM [facility] C/O RIGHT HIP AND RIGHT LEG PAIN S/P FALL WHILE TRANSFERRING TO W/C. PT STS "I FELL BECAUSE THE WHEELCHAIR WASN'T LOCKED." PT A&OX4, BREATHING EVEN AND UNLABORED, LUNG SOUNDS CTAB, NSR ON MONITOR. EDEMA AND REDNESS NOTED TO BLE. ABRASION NOTED TO RIGHT ANKLE, MEDIAL ASPECT. PT ONERY, CONTINUOUSLY YELLING FOR WATER. PT MADE AWARE THAT DIAGNOSTICS AND RESULTS ARE PENDING. OK PER DR. DUMONT FOR PATIENT TO HAVE WATER. WATER GIVEN TO PATIENT.
--- NOTE | 2018-10-29 09:57 | NUR ---
PT TO X-RAY
[2018-10-29 09:58] LABS: BASOPHILS % (AUTO) 0.5 % (0.0-2.0); EOSINOPHILS # (AUTO) 0.2 K/uL (0-0.4); EOSINOPHILS % (AUTO) 2.5 % (0.0-4.0); HEMATOCRIT 41.5 % (36-48); HEMOGLOBIN 13.4 g/dL (12.0-16.0); LYMPHOCYTES # (AUTO) 1.3 K/uL (2.5-16.5); MEAN CORPUSCULAR HEMOGLOBIN 32 pg (27-31); MEAN CORPUSCULAR HGB CONC 32 g/dL (33-37); MEAN CORPUSCULAR VOLUME 98.5 fL (80-94); MONOCYTES # (AUTO) 0.5 K/uL (0.8-1.0); MONOCYTES % (AUTO) 6.2 % (1.7-9.3); NEUTROPHILS # (AUTO) 5.4 K/uL (1.8-7.7); NEUTROPHILS % (AUTO) 72.8 % (42.2-75.2); PLATELET COUNT (AUTO) 363 K/uL (140-450); RED BLOOD CELL COUNT(AUTO) 4.21 MIL/uL (4.20-5.40); RED CELL DISTRIBUTION WIDTH 16.8 % (11.6-13.7); WHITE BLOOD COUNT (AUTO) 7.4 K/uL (4.8-10.8)
[2018-10-29 10:12] LABS: ALBUMIN 2.8 g/dL (3.4-5.0); ANION GAP 9.9 (8-16); ASPARTATE AMINOTRANSFERASE 43 U/L (15-37); CARBON DIOXIDE 33.1 mmol/L (21-32); CHLORIDE 100 mmol/L (98-107); CREATININE 0.9 mg/dL (0.6-1.3); GLUCOSE 198 mg/dL (74-106); PROTHROMBIN TIME 10.4 secs (10.8-13.4); SODIUM SERUM 139 mmol/L (136-145); TOTAL BILIRUBIN 0.5 mg/dL (0.0-1.0); UREA NITROGEN, BLOOD 10 mg/dL (7-18)
--- NOTE | 2018-10-29 10:31 | NUR ---
PATIENT BACK FROM X-RAY. PAIN REMAINS 04/01.
--- NOTE | 2018-10-29 11:02 | NUR ---
PT INCONTINENT TO URINE, LINENS CHANGED, PT REMAINS ONERY ATTEMPTING TO STRIKE AT PRIMARY RN WITH FISTS WHILE BEING CHANGED. PATIENTS PAIN DECREASED /10, NO N/V. CONTINUE TO MONITOR.
--- NOTE | 2018-10-29 11:07 | NUR ---
PEDRO NURSE FROM [facility] CALLED FOR UPDATE, SHE WILL CALL BACK IN ONE HOUR. [phone].
--- NOTE | 2018-10-29 11:55 | NUR ---
PT TO BE DISCHARGED BACK TO FACILITY. [facility] [id number]. REPORT TO PEDRO CHÁVEZ [phone].
[2018-10-29] MEDS ORDERED: HYDROcodone/APAP 5/325 MG 1 TAB TAB PO ONE (13:25)
--- NOTE | 2018-10-29 13:30 | NUR ---
PT REQUESTING PAIN MEDICATION AT THIS TIME FOR 4/[address] DUMONT MADE AWARE.
--- NOTE | 2018-10-29 13:55 | NUR ---
PT SLEEPING SOUNDLY, EQUAL CHEST RISE AND FALL. AWAITING TRANSPORT BACK TO FACILITY.
--- NOTE | 2018-10-29 15:06 | NUR ---
[facility] HERE TO TRANSPORT PT BACK TO FACILITY. REPORT GIVEN TO CANE CUTTER. IV DCD WITH ANGIOCATH INTACT. DISCHARGE PAPERWORK SIGNED.
[2018-10-29 15:07] VITALS: BP 129/62
--- NOTE | 2018-10-29 15:08 | NUR ---
Patient discharged with v/s stable. Written and verbal after care instructions given and explained. Patient verbalized understanding. Ambulance Transport with [facility] to [facility]REPORT GIVEN TO PEDRO AT FACILITY. All questions addressed prior to discharge. Advised to follow up with PMD.
== END 2018-10-29 15:08 | disposition home or self-care (01) ==
LOC: MED 08:51
DX: S00.03XA Contusion of scalp, initial encounter (principal); S70.01XA Contusion of right hip, initial encounter; M17.11 Unilateral primary osteoarthritis, right knee; I48.91 Unspecified atrial fibrillation; I11.0 Hypertensive heart disease with heart failure; I50.9 Heart failure, unspecified; J44.9 Chronic obstructive pulmonary disease, unspecified; E11.9 Type 2 diabetes mellitus without complications; K21.9 Gastro-esophageal reflux disease without esophagitis; Z88.0 Allergy status to penicillin; Z88.8 Allergy status to other drugs, medicaments and biological substances; Z79.2 Long term (current) use of antibiotics; Z79.01 Long term (current) use of anticoagulants; Z79.899 Other long term (current) drug therapy; Z79.891 Long term (current) use of opiate analgesic; Z79.84 Long term (current) use of oral hypoglycemic drugs; W05.0XXA Fall from non-moving wheelchair, initial encounter; Y93.89 Activity, other specified; Y92.89 Other specified places as the place of occurrence of the external cause; Y99.8 Other external cause status
CPT/HCPCS: 36415; 70450; 72170; 73552; 73562; 73700; 80053; 84484; 85025; 85610; 85730; 93005; 96374; 96375; 96376; 99284; J2270; J2405